=== PATIENT | male | born 1970 | race Caucasian/White ===

== ENCOUNTER 2018-01-14 20:19 | Emergency (ER) | payer BC, OTHER ==
[~2018-01-14] VITALS: Ht 180.3 cm; Wt 127.0 kg
[2018-01-14 20:21] VITALS: BP_SYST 213
[2018-01-14] MEDS ORDERED: LORazepam 2 MG/ML VIAL (FOR ER USE) IVP ONE ×2 (21:00→23:30)
[2018-01-14] MEDS ORDERED: cloNIDine HCL 0.1 MG TABLET PO ONE (21:00)
[2018-01-14 21:33] LABS: BASOPHILS # (AUTO) 0.1 K/uL (0.0-0.2); BASOPHILS % (AUTO) 1.3 % (0.0-2.0); EOSINOPHILS # (AUTO) 0.2 K/uL (0.0-0.4); EOSINOPHILS % (AUTO) 2.2 % (0.0-4.0); HEMOGLOBIN 17.2 g/dL (14.0-18.0); LYMPHOCYTES # (AUTO) 3.3 K/uL (1.0-5.5); LYMPHOCYTES % (AUTO) 37.4 % (20.5-51.5); MEAN CORPUSCULAR HEMOGLOBIN 33 pg (27-31); MEAN CORPUSCULAR HGB CONC 34 % (32-36); MEAN CORPUSCULAR VOLUME 95 fL (79.0-98.0); MONOCYTES # (AUTO) 0.9 K/uL (0.0-1.0); MONOCYTES % (AUTO) 9.8 % (1.7-9.3); NEUTROPHILS # (AUTO) 4.3 K/uL (1.8-7.7); NEUTROPHILS % (AUTO) 49.3 % (40.0-70.0); PLATELET COUNT (AUTO) 183 K/uL (130-430); RED BLOOD CELL COUNT(AUTO) 5.28 MIL/uL (4.2-6.2); RED CELL DISTRIBUTION WIDTH 13.5 % (9.0-15.0); WHITE BLOOD COUNT (AUTO) 8.8 K/uL (4.8-10.8)
[2018-01-14 21:40] LABS: ANION GAP 8 (5-15); CALCIUM 9.1 mg/dL (8.4-11.0); CHLORIDE 103 mmol/L (98-107); CREATININE 1.35 mg/dL (0.55-1.30); GLUCOSE 89 mg/dL (70-99); POTASSIUM 3.6 mmol/L (3.5-5.1); SODIUM SERUM 140 mmol/L (136-145); UREA NITROGEN, BLOOD 13 mg/dL (8-21)
[2018-01-14 21:41] LABS: GFR AFRICAN AMERICAN 73 mL/min (>90)
[2018-01-14 21:49] LABS: ALANINE AMINOTRANSFERASE 65 U/L (12-78); ALBUMIN 4.2 g/dL (3.4-4.8); ASPARTATE AMINOTRANSFERASE 36 U/L (10-37); TOTAL BILIRUBIN 0.4 mg/dL (0.0-1.0)
[2018-01-14 22:37] LABS: BARBITURATE, URINE NEGATIVE (NEG <=200); BENZODIAZEPINE, URINE NEGATIVE (NEG <=150); CANNABINOID, URINE NEGATIVE (NEG <=50); COCAINE, URINE NEGATIVE (NEG <=150); METHAMPHETAMINES SCREEN,URINE NEGATIVE (NEG <=500); OPIATE, URINE NEGATIVE (NEG <=100); PHENCYCLIDINE SCREEN,URINE NEGATIVE (NEG <=25); UR TRICYCLIC ANTIDEPRESSANTS NEGATIVE (NEG <=300); URINE AMPHETAMINE NEGATIVE (NEG <=500); URINE METHADONE NEGATIVE (NEG <=200); URINE OXYCODONE SCREEN NEGATIVE (NEG <=100); URINE PROPOXYPHENE SCREEN NEGATIVE (NEG <=300)
[2018-01-14] MEDS ORDERED: LABETALOL 100 MG/ 20ML VIAL IVP ONE (23:00)
[2018-01-15 01:00] VITALS: BP_SYST 144
== END 2018-01-15 01:00 | disposition home or self-care (01) ==
LOC: SED 20:19
DX: I10 Essential (primary) hypertension (principal); R51 Headache; R09.89 Other specified symptoms and signs involving the circulatory and respiratory systems
CPT/HCPCS: 36415; 70450; 71045; 80053; 80307; 84484; 85025; 93005; 96374; 96376; 99285; J2060; J3490

== ENCOUNTER 2018-08-18 10:40 | Emergency (ER) | payer OTHER ==
[~2018-08-18] VITALS: Ht 177.8 cm; Wt 117.9 kg
--- NOTE | 2018-08-18 10:50 | NUR ---
Placed in room 2 . Placed on compliance monitor, blood pressure machine and pulse oximeter. To gown for exam. Side rails up. Report given to Peggy STOVER.
[2018-08-18 10:52] VITALS: BP_SYST 137
--- NOTE | 2018-08-18 11:15 | NUR ---
Patient presented to ER with chest pressure x1 hr, dizziness and cough with cold symptoms x3 days. Patient arrived ambulatory with . patient A&O x4, afebrile, respirations equal bilat, skin pink & warm. Patient states he had cold symptoms x 3 days then went to a "[facility]" he was given a injection x2 days, on second day he began feeling weak, dizzy and indigestion. Patient staes today chest pressur brought him to ER.
[2018-08-18] MEDS: ASPIRIN 81 MG TAB.CHEW PO ONE (11:29)
[2018-08-18] MEDS ORDERED: ASPIRIN 81 MG TAB.CHEW ONE (11:35)
--- NOTE | 2018-08-18 11:40 | NUR ---
Pt medicated tolerated well.Continuing to monitor.
[2018-08-18 11:44] LABS: WHITE BLOOD COUNT (AUTO) 8.3 K/uL (4.8-10.8)
[2018-08-18 11:45] LABS: BASOPHILS % (AUTO) 0.6 % (0.0-2.0); CALCIUM 9.6 mg/dL (8.4-11.0); CREATININE 0.99 mg/dL (0.55-1.30); EOSINOPHILS # (AUTO) 0.2 K/uL (0.0-0.4); EOSINOPHILS % (AUTO) 1.9 % (0.0-4.0); HEMOGLOBIN 16.5 g/dL (14.0-18.0); LYMPHOCYTES # (AUTO) 2.8 K/uL (1.0-5.5); LYMPHOCYTES % (AUTO) 33.5 % (20.5-51.5); MEAN CORPUSCULAR HEMOGLOBIN 32 pg (27-31); MEAN CORPUSCULAR HGB CONC 34 % (32-36); MEAN CORPUSCULAR VOLUME 94 fL (79.0-98.0); MONOCYTES # (AUTO) 0.8 K/uL (0.0-1.0); MONOCYTES % (AUTO) 9.6 % (1.7-9.3); NEUTROPHILS # (AUTO) 4.5 K/uL (1.8-7.7); PLATELET COUNT (AUTO) 198 K/uL (130-430); RED BLOOD CELL COUNT(AUTO) 5.24 MIL/uL (4.2-6.2); RED CELL DISTRIBUTION WIDTH 13.3 % (9.0-15.0)
[2018-08-18 11:48] LABS: PROTHROMBIN TIME 10.7 SECS (9.5-12.5)
[2018-08-18 11:50] LABS: ALBUMIN 3.6 g/dL (3.4-4.8); TOTAL BILIRUBIN 0.5 mg/dL (0.0-1.0)
[2018-08-18 12:12] LABS: BILIRUBIN,URINE NEGATIVE (NEGATIVE); CLARITY/URINE CLEAR (CLEAR); COLOR,URINE YELLOW (YELLOW); GLUCOSE,URINE NEGATIVE (NEGATIVE); KETONES,URINE NEGATIVE (NEGATIVE); LEUKOCYTE ESTERASE ,URINE NEGATIVE (NEGATIVE); NITRITE, URINE NEGATIVE (NEGATIVE); PROTEIN URINE NEGATIVE (NEGATIVE); UROBILINOGEN,URINE 0.2 (0.2-1.0)
[2018-08-18 12:14] LABS: BLOOD, URINE TRACE (NEGATIVE)
--- NOTE | 2018-08-18 12:15 | NUR ---
ER at bedside examining patient.
[2018-08-18 12:20] LABS: BACTERIA,URINE RARE /HPF (None Seen); MUCUS,URINE 1+ /LPF (None Seen); RBC,URINE 0-3 /HPF (0-3); WBC,URINE 0-3 /HPF (0-3)
[2018-08-18 12:27] LABS: BARBITURATE, URINE NEGATIVE (NEG <=200); BENZODIAZEPINE, URINE NEGATIVE (NEG <=150); CANNABINOID, URINE NEGATIVE (NEG <=50); COCAINE, URINE NEGATIVE (NEG <=150); METHAMPHETAMINES SCREEN,URINE NEGATIVE (NEG <=500); OPIATE, URINE NEGATIVE (NEG <=100); PHENCYCLIDINE SCREEN,URINE NEGATIVE (NEG <=25); UR TRICYCLIC ANTIDEPRESSANTS NEGATIVE (NEG <=300); URINE AMPHETAMINE NEGATIVE (NEG <=500); URINE METHADONE NEGATIVE (NEG <=200); URINE OXYCODONE SCREEN NEGATIVE (NEG <=100); URINE PROPOXYPHENE SCREEN NEGATIVE (NEG <=300)
--- NOTE | 2018-08-18 12:50 | NUR ---
# 20 gauge angiocath placed to Left AC. Use of asceptic technique. Opsite placed over site. Blood return noted. Blood for lab drawn from site. Flushed with 10 cc of normal saline. No evidence of infiltration noted. Patient tolerated well.
[2018-08-18] MEDS: NACL 0.9% 1,000 ML IV ONE (13:07)
--- NOTE | 2018-08-18 13:30 | NUR ---
Patient awake and asking for medication to decrease feeiling of dizziness. Patient states chest wall pain 0/10.
[2018-08-18] MEDS: MECLIZINE HCL 25 MG TABLET (ANITVERT) PO ONE (13:48)
--- NOTE | 2018-08-18 13:50 | NUR ---
Pt medicated for dizziness tolerated well.Continuing to monitor.
[2018-08-18 13:55] LABS: NEUTROPHILS % (AUTO) 54.4 % (40.0-70.0)
--- NOTE | 2018-08-18 14:30 | NUR ---
Patient alert and sitting up in bed, states dizziness has decreased and no chest pain at this time. Sitting up talking to and mother.
[2018-08-18 15:35] VITALS: BP_SYST 137
--- NOTE | 2018-08-18 15:35 | NUR ---
Patient given written and verbal discharge instructions and verbalizes understanding. ER MD discussed with patient the results and treatment provided. Patient in stable condition. ID arm band removed. IV catheter removed intact and dressing applied, no active bleeding. Rx of Meclizine given. Patient educated on pain management and to follow up with PMD. Pain Scale 0/10 . Opportunity for questions provided and answered. Medication side effect fact sheet provided.
== END 2018-08-18 15:35 | disposition home or self-care (01) ==
LOC: SED 10:40
DX: E86.0 Dehydration (principal); R42 Dizziness and giddiness; R07.89 Other chest pain; H53.8 Other visual disturbances; R11.0 Nausea; I10 Essential (primary) hypertension
CPT/HCPCS: 36415; 70450; 71045; 80053; 80307; 81000; 82550; 83880; 84484; 85025; 85379; 85610; 93005; 96360; 99284; J7030; J8597